=== PATIENT | male | born 1975 | race Caucasian/White ===

== ENCOUNTER 2023-11-16 03:35 | Emergency (ER) | payer SELFPAY ==
[2023-11-16 03:49] VITALS: BP 182/113; PULSE 91; RESP 14; O2SAT 99; BMI 25.2
--- NOTE | 2023-11-16 04:08 | CTR_ITS ---
PROCEDURE INFORMATION: Exam: CT Head Without Contrast Exam date and time: 11/16/2023 4:23 AM Age: 48 years old Clinical indication: Other: Unable to sleep/pressure in head; Patient HX: Patient states he has not been able to sleep properly for the last two months and feels pressure and tingling in his head when he lays supine. ; Additional info: Concern for mass TECHNIQUE: Imaging protocol: Computed tomography of the head without contrast. Radiation optimization: All CT scans at this facility use at least one of these dose optimization techniques: automated exposure control; mA and/or kV adjustment per patient size (includes targeted exams where dose is matched to clinical indication); or iterative reconstruction. COMPARISON: No relevant prior studies available. RADIATION DOSE METRICS: Total DLP (mGy-cm): 1233.29 FINDINGS: Brain: No acute intracranial hemorrhage or mass effect. No definite acute infarct by CT. MRI would be more sensitive/specific for detection, as clinically directed. Cerebral ventricles: Ventricle size is normal for age. Paranasal sinuses: Included paranasal sinuses are essentially clear. Mastoid air cells: No significant acute finding. Bones: No definite acute skull fracture. Soft tissues: No significant acute finding. CT/CT head wo con* [id number] IMPRESSION: 1. No acute intracranial hemorrhage or mass effect. 2. No definite acute infarct by CT, see above. 3. Other findings discussed above.
[2023-11-16 04:47] LABS: Basophils % 0.4 %; Eosinophils # 0.1 10^3/uL (0.0-0.8); Eosinophils % 1.4 %; Hematocrit 44.1 % (37-53); Lymphocytes # 2.7 10^3/uL (0.8-4.8); Lymphocytes % 35.4 %; Mean Corpuscular HGB Conc 33.8 g/dL (30-55); Mean Corpuscular Hemoglobin 28.3 pg (27-33); Mean Corpuscular Volume 83.7 fl (82-101); Mean Platelet Volume 8.3 fL (7.4-10.4); Monocytes # 0.7 10^3/uL (0.2-0.9); Monocytes % 9.4 %; Neutrophils % 53.1 %; Nucleated Red Blood Cells % 0 %; Platelet Count 247 10^3/cmm (157-399); Red Blood Count 5.27 10^6/uL (3.85-5.65); Red Cell Distribution Width 12.8 % (12.1-15.1); White Blood Count 7.73 10^3/uL (3.29-11.43)
--- NOTE | 2023-11-16 04:47 | ED_ITS ---
HPI - General Adult 2 General: Chief complaint: General Medical Stated complaint: Can't sleep Time Seen by Provider: 11/16/23 04:00 History of Present Illness: 48-year-old male presents with insomnia. Patient reports he has been having issues with insomnia for couple months. That he reports he has had inability to sleep now for the last 3 days. Patient reports that he has been to couple outpatient urgent cares and they spent started on trazodone, hydroxyzine and and try depressant. Has not had any lab evaluation. He reports that when he lays down he feels like he gets a tingling or wave sensation that goes down to his body. He denies any drugs, alcohol. Does not drink a lot of caffeine. He reports that he feels like he is having some anxiety this likely due to his inability to get some sleep. He denies any behavioral diagnosis or episodes of being hyperactive and then very depressed. Associated symptoms: Deny chest pain, dyspnea, headache(s) or palpitations Review of Systems 2 Const: Reports: change in sleep pattern; Denies: fever(s) or chills Card: Denies: chest pain or palpitations Resp: Denies: dyspnea or productive cough GI: Denies: abdominal pain : Denies: flank pain or difficulty urinating Neuro: Denies: headache(s) or numbness in extremities Psych: Reports: anxiety and sleeping less Physical Exam 2 Const: COMMON NORMALS: patient oriented x3 GENERAL APPEARANCE: cooperative Resp: COMMON NORMALS: normal respiratory effort, No retractions, No use of accessory muscles and percussion normal EFFORT & INSPECTION: Yes able to speak in complete sentences PERCUSSION: percussion normal Cardio: COMMON NORMALS: regular rate RATE: regular rate GI: COMMON NORMALS: Soft to palpation and non-tender PALPATION: Yes Soft to palpation : COMMON NORMALS: Yes no CVA tenderness BLADDER/KIDNEY EXAM: Yes no CVA tenderness Back/Pelvis: COMMON NORMALS: no CVA tenderness Neuro: COMMON NORMALS: patient oriented x3 Psych: COMMON NORMALS: Normal thought process present ATTITUDE: Yes calm MOOD & AFFECT: Yes depressed mood THOUGHT PROCESS: Normal thought process present Skin: COMMON NORMALS: no rashes or lesions noted, no wounds and turgor normal GENERAL SKIN EXAM: no rashes or lesions noted and turgor normal Course 2 Vital Signs: Vital signs: Vital Signs Pulse Rate 91 11/16/23 03:49 Respiratory Rate 14 11/16/23 03:49 Blood Pressure 182/113 11/16/23 03:49 Pulse Oximetry 99 11/16/23 03:49 Oxygen Delivery Me thod Room Air 11/16/23 03:49 MDM - General Adult Medical Decision Making Patient diagnostics ordered reviewed and interpreted by me. Patient labs show no acute or concerning findings. Patient's CT was reviewed by me shows no acute findings but he was discharged prior to final radiology report will be notified of any discrepancy as he was ready to be discharged home. Patient was offered a urinalysis and urine drug screen but did declined. I did recommend he follows up with a primary care provider as they can do further outpatient evaluation along with a behavioral health specialist. He was stable upon discharge. Lab Data 11/16/23 04:43 11/16/23 04:43 Laboratory Results WBC 7.73 10^3/uL (3.29-11.43) 11/16/23 04:43 RBC 5.27 10^6/uL (3.85-5.65) 11/16/23 04:43 Hgb 14.90 g/dL (11.27-16.99) 11/16/23 04:43 Hct 44.1 % (37-53) 11/16/23 04:43 MCV 83.7 fl (82-101) 11/16/23 04:43 MCH 28.3 pg (27-33) 11/16/23 04:43 MCHC 33.8 g/dL (30-55) 11/16/23 04:43 RDW 12.8 % (12.1-15.1) 11/16/23 04:43 Plt Count 247 10^3/cmm (157-399) 11/16/23 04:43 MPV 8.3 fL (7.4-10.4) 11/16/23 04:43 Neut % (Auto) 53.1 % 11/16/23 04:43 Lymph % (Auto) 35.4 % 11/16/23 04:43 [place] % (Auto) 9.4 % 11/16/23 04:43 Eos % (Auto) 1.4 % 11/16/23 04:43 Baso % (Auto) 0.4 % 11/16/23 04:43 Neut # (Auto) 4.10 10^3/uL (1.8-7.7) 11/16/23 04:43 Lymph # (Auto) 2.7 10^3/uL (0.8-4.8) 11/16/23 04:43 [place] # (Auto) 0.7 10^3/uL (0.2-0.9) 11/16/23 04:43 Eos # (Auto) 0.1 10^3/uL (0.0-0.8) 11/16/23 04:43 Baso # (Auto) 0.0 10^3/uL (0.0-0.1) 11/16/23 04:43 Nucleated RBC % (auto) 0 % 11/16/23 04:43 Nucleated RBCs # 0.0 /100WBC 11/16/23 04:43 Sodium 138 mmol/L (136-145) 11/16/23 04:43 Potassium 4.2 mmol/L (3.5-5.1) 11/16/23 04:43 Chloride 102 mmol/L (98-107) 11/16/23 04:43 Carbon Dioxide 24 mmol/L (22-29) 11/16/23 04:43 Anion Gap 16.2 (5-19) 11/16/23 04:43 BUN 12 mg/dL (6-20) 11/16/23 04:43 Creatinine 0.9 mg/dL (0.7-1.2) 11/16/23 04:43 GFR Calculation 89.3 mL/min (90-130) L 11/16/23 04:43 Glucose 105 mg/dL (65-115) 11/16/23 04:43 Calculated Osmolality 286 mOsm/kg (285-295) 11/16/23 04:43 Calcium 9.6 mg/dL (8.5-10.5) 11/16/23 04:43 Total Bilirubin 1.0 mg/dL (0.15-1.2) 11/16/23 04:43 AST 17 U/L (0-40) 11/16/23 04:43 ALT 15 U/L (0-41) 11/16/23 04:43 Alkaline Phosphatase 68 U/L (40-130) 11/16/23 04:43 Total Protein 7.7 g/dL (6.6-8.7) 11/16/23 04:43 Albumin 4.3 g/dL (3.5-5.2) 11/16/23 04:43 Globulin 3.4 g/dL (1.3-4.6) 11/16/23 04:43 TSH 1.04 uIU/mL (0.27-4.20) 11/16/23 04:43 Free T4 1.68 ng/dL (0.82-1.77) 11/16/23 04:43 XR interpretation done by ED provider, pending radiology final review ED provider radiology interpretation(s): No acute findings Discharge Plan Discharge Patient Disposition: Home Clinical Impression: Insomnia Condition: Stable Prescriptions: No Action No Known Home Medications Discharge Orders: Discharge ED (Routine); Ordered 11/16/23 Ordered By: Francesco Holden Discharge Diet: Usual diet Discharge Activity: Increase activity as tolerated Patient Instructions: Insomnia (ED), Opioid Safety, Pain Management Activity Restrictions/Additional Instructions: Please follow-up with your primary care provider to continue further outpatient evaluation and management Coding Level of Care Code ED Operations Planner for Florentino Mendoza
[2023-11-16 05:18] LABS: Alanine Aminotransferase 15 U/L (0-41); Albumin Level 4.3 g/dL (3.5-5.2); Alkaline Phosphatase 68 U/L (40-130); Anion Gap 16.2 (5-19); Aspartate Amino Transferase 17 U/L (0-40); Blood Urea Nitrogen 12 mg/dL (6-20); Calcium 9.6 mg/dL (8.5-10.5); Carbon Dioxide 24 mmol/L (22-29); Chloride 102 mmol/L (98-107); Creatinine Clr Calc Pharmacy 98.8311; Free T4 Free Thyroxine 1.68 ng/dL (0.82-1.77); Globulin 3.4 g/dL (1.3-4.6); Glomerular Filtration Rate 89.3 mL/min (90-130); Glucose 105 mg/dL (65-115); Osmolality Calculated 286 mOsm/kg (285-295); Potassium 4.2 mmol/L (3.5-5.1); Sodium 138 mmol/L (136-145); Thyroid Stimulating Hormone 1.04 uIU/mL (0.27-4.20); Total Protein 7.7 g/dL (6.6-8.7)
[2023-11-16 06:19] VITALS: BP 152/98; PULSE 84; O2SAT 99
== END 2023-11-16 06:20 | disposition home or self-care (01) ==
PROVIDERS: Emergency Provider Student in an Organized Health Care Education/Training Program
DX: G47.00 Insomnia, unspecified (principal)
CPT/HCPCS: 36415; 70450; 80053; 84439; 84443; 85025; 99284